=== PATIENT | female | born 1955 | race Caucasian/White ===

== ENCOUNTER 2020-02-09 07:59 | Outpatient (REF) | payer BC, SELFPAY ==
[2020-02-09 19:37] LABS: Calculated LDL 156 mg/dL (<100); Cholesterol 254 mg/dL (<200); HDL Cholesterol 79 mg/dL (40-60); TSH 2.78 uIU/mL (0.36-3.74); Triglyceride 96 mg/dL (<150)
== END 2020-02-09 08:19 ==
LOC: NCHCN 07:59
PROVIDERS: PCP Internal Medicine; Visit Provider Internal Medicine
DX: Z00.00 Encounter for general adult medical examination without abnormal findings (principal); Z13.220 Encounter for screening for lipoid disorders; Z13.29 Encounter for screening for other suspected endocrine disorder
CPT/HCPCS: 80061; 84443

== ENCOUNTER 2022-02-08 15:48 | Outpatient (REF) | payer MEDICARE, SELFPAY ==
[2022-02-08 21:48] LABS: CREATININE 1.1 mg/dL (0.55-1.02); Calculated LDL 137 mg/dL (<100); Cholesterol 243 mg/dL (<200); Estimated GFR 49.69 (mL/min/1.73m2); HDL Cholesterol 79 mg/dL (40-60); TSH 1.69 uIU/mL (0.36-3.74); Triglyceride 135 mg/dL (<150)
== END 2022-02-08 15:49 | disposition home or self-care (01) ==
LOC: NCHCN 15:48
PROVIDERS: PCP Internal Medicine; Visit Provider Internal Medicine
DX: Z00.00 Encounter for general adult medical examination without abnormal findings (principal); M77.41 Metatarsalgia, right foot; D12.6 Benign neoplasm of colon, unspecified
CPT/HCPCS: 80061; 82565; 84443

== ENCOUNTER 2023-05-21 19:26 | Outpatient (REF) | payer MEDICARE, SELFPAY ==
[2023-05-21 21:29] LABS: HCT 45.4 % (36.0-46.0); HGB 14.8 g/dL (11.2-15.7); MCH 29.7 pg (27.0-33.0); MCHC 32.6 % (32.0-36.0); MCV 91 fL (80-95); Platelet Count 269 10^3/uL (130-400); RBC 4.99 10^6/uL (3.93-5.22); RDW-SD 43.7 fL; WBC 4.77 10^3/uL (4.4-10.8)
[2023-05-21 22:26] LABS: Anion Gap 5.2 mmol/L (3-11); BUN 13 mg/dL (7-18); CO2 30.8 mmol/L (21.0-32.0); Chloride 104 mmol/L (98-107); Estimated GFR 61.75 (mL/min/1.73m2); Glucose 114 mg/dL (74-106); Sodium 140 mmol/L (136-145)
== END 2023-05-21 19:27 | disposition home or self-care (01) ==
LOC: NCHCN 19:26
PROVIDERS: PCP Internal Medicine; Visit Provider Internal Medicine
DX: K21.9 Gastro-esophageal reflux disease without esophagitis (principal)
CPT/HCPCS: 80048; 85027

== ENCOUNTER 2023-11-08 18:45 | Outpatient (REF) | payer MEDICARE, SELFPAY ==
[2023-11-08 19:27] LABS: ALT 36 U/L (14-59); AST 26 U/L (15-37); Albumin 3.7 g/dL (3.4-5.0); Alkaline Phosphatase 83 U/L (46-116); BUN 20 mg/dL (7-18); Bilirubin, Total 0.4 mg/dL (0.2-1.0); Calcium 9.5 mg/dL (8.5-10.1); Chloride 103 mmol/L (98-107); Estimated GFR 61.75 (mL/min/1.73m2); Glucose 112 mg/dL (74-106); NT-proBNP 44 pg/mL (<300); Potassium 3.9 mmol/L (3.5-5.1); Sodium 138 mmol/L (136-145)
[2023-11-08 19:33] LABS: PROTEIN 6.1 mg/dL (0.0-11.9)
== END 2023-11-08 18:46 | disposition home or self-care (01) ==
LOC: NCHCN 18:45
PROVIDERS: PCP Internal Medicine; Visit Provider Internal Medicine
DX: R60.9 Edema, unspecified (principal)
CPT/HCPCS: 80053; 83880; 84156

== ENCOUNTER 2025-05-21 08:16 | Outpatient (REF) | payer MEDICARE, SELFPAY ==
[2025-05-21 18:57] LABS: Abs Immature Grans 0.01 10^3/uL (0.0-0.06); HCT 45.3 % (36.0-46.0); HGB 14.9 g/dL (11.2-15.7); Immature Grans % 0.2 %; MCH 29.6 pg (27.0-33.0); MCHC 32.9 % (32.0-36.0); MCV 90 fL (80-95); MPV 9.5 fL (8.0-11.0); Platelet Count 222 10^3/uL (130-400); RBC 5.03 10^6/uL (3.93-5.22); RDW 12.7 % (11.7-14.6); RDW-SD 42.2 fL; WBC 4.25 10^3/uL (4.4-10.8)
[2025-05-21 19:16] LABS: TSH (W/Ref FT4) 2.36 uIU/mL (0.55-4.78)
[2025-05-21 19:19] LABS: ALT 17 U/L (10-49); AST 23 U/L (<34); Albumin 4.3 g/dL (3.2-5.0); Alkaline Phosphatase 84 U/L (46-116); Anion Gap 6.5 mmol/L (3-11); BUN 21 mg/dL (9-23); Bilirubin, Total 0.90 mg/dL (0.2-1.2); CO2 30.5 mmol/L (20.0-31.0); Calcium 9.7 mg/dL (8.3-10.6); Chloride 106 mmol/L (98-107); Cholesterol 253 mg/dL (<200); Glucose 109 mg/dL (74-106); HDL Cholesterol 90 mg/dL (>40); Potassium 4.5 mmol/L (3.5-5.1); Sodium 143 mmol/L (136-145); Total Protein 6.8 g/dL (5.7-8.2)
== END 2025-05-21 08:17 | disposition home or self-care (01) ==
LOC: NCHCN 08:16
PROVIDERS: PCP Internal Medicine; Visit Provider Nurse Practitioner Family
DX: E78.5 Hyperlipidemia, unspecified (principal); Z13.9 Encounter for screening, unspecified
CPT/HCPCS: 80053; 80061; 84443; 85025